=== PATIENT | male | born 2000 | race Caucasian/White ===

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

== ENCOUNTER → 2020-03-16 | Outpatient (CLI) | payer BC ==
[~2020-03-16] MED LIST changes: +BUPR75 PO
== END | disposition home or self-care (01) ==
LOC: LAB SHORT 12:45 → LAB EV 12:45
DX: J02.9 Acute pharyngitis, unspecified (principal)
CPT/HCPCS: 87081